=== PATIENT | male | born 1960 | race Caucasian/White ===

== ENCOUNTER 2023-03-19 03:13 | Emergency (ER) | payer OTHER, SELFPAY ==
[2023-03-19 03:14] VITALS: BP 146/92; PULSE 78; RESP 15; TEMP 36.7; O2SAT 97; BMI 38.4
--- NOTE | 2023-03-19 03:42 | EDS_ITS ---
HPI HPI - GI History of Present Illness Chief Complaint: Abd Pain Narrative Narrative: 63-year-old male presenting with left lower quadrant abdominal pain. He states he had this for about a month. He feels like it is sharp and it comes and goes. He states that sometimes is very severe. He states at times he is sweating. He does have history of kidney stones but states it does not feel similar. He has some constipation but denies diarrhea. No fevers or chills. No nausea or vomiting. He has had his gallbladder removed this is only abdominal surgery. Patient states he saw his PCP who felt he had diverticulitis and put him on prednisone. He has not had any improvement. [facility] Medical History (Updated 03/19/23 @ 05:[address] Carlo Brian DO) Kidney stones Sleep apnea Home Medications hydrocodone-acetaminophen 5-325mg 5mg-325mg 1 tab PO Q6H PRN pain 3 days #12 TABLETS 03/19/23 [Rx Last Taken Unknown] ondansetron 4 mg disintegrating tablet 4 mg PO Q8H PRN PRN Nausea #12 tabs 03/19/23 [Rx Last Taken Unknown] Allergy/AdvReac Type Severity Reaction Status Date / Time No Known Allergies Allergy Verified 03/19/23 03:22 Surgical History Hx of cholecystectomy Hx of tonsillectomy Social History Smoking Status: Never smoker ROS ROS ED Constitutional Constitutional ED: Denies chills, fever(s) or sweats Eyes Eyes: Denies blurry vision or change in vision ENT ENT ED: Denies ear pain or sore throat Cardiovascular Cardiovascular: Denies chest pain, palpitations or racing heartbeat Respiratory/Chest Respiratory/Chest: Denies cough, dyspnea or sputum Gastrointestinal Gastrointestinal: Reports abdominal pain and constipation; Denies diarrhea, nausea or vomiting Genitourinary Genitourinary ED: Denies dysuria, hematuria or urinary frequency Musculoskeletal Musculoskeletal: Denies arthralgias, myalgias or neck pain Integumentary Denies abscess, Abrasions or rash Neurologic Neurologic: Denies headache(s), paresthesias or weakness Psychiatric Psychiatric: Denies anxiety, depression, suicidal ideation or suicidal thoughts Endocrine Endocrinology: Denies polydipsia or polyuria EXAM Physical Exam Const Vital Signs: 03/19/23 03:14 Temperature 98.0 F Temperature Source Oral Pulse Rate 78 Respiratory Rate 15 Blood Pressure 146/92 H Blood Pressure Mean 110 Pulse Ox 97 Oxygen Delivery Method Room Air Positive well nourished General Appearance ED: NAD; Negative for pallor HEENT Reports moist mucous membranes normocephalic and atraumatic Eyes PERRL and EOMs intact bilaterally Resp normal respiratory effort Cardio regular rate and regular rhythm GI Palpation: tender LLQ Back/Spine General Back: CVA tenderness left Neuro CN's II-XII intact bilaterally, moves all extremities and no sensory deficits noted Sensorium / Orientation: alert Motor Exam: strength 5/5 throughout Psych mental status grossly normal and thought process normal Skin no wounds General Skin Exam: Negative for jaundice or pallor MDM MDM MDM Narrative Medical decision making narrative: 63-year-old male with left lower quadrant abdominal pain and some mild CVA tenderness on exam. Patient states been going on for about a month. He was diagnosed with diverticulitis and put on prednisone but this is not helping. Differential includes colitis, diverticulitis, UTI, pyelonephritis, kidney stone, ureteral stone, constipation, dehydration, electrolyte abnormalities. CBC was obtained to assess white blood cell count, hemoglobin, platelets. CMP to assess liver function, renal function, electrolytes. Urinalysis to assess for UTI or occult blood. Patient declines analgesia at this time. CBC showed no leukocytosis. Hemoglobin slightly concentrated. Platelets normal. Renal function electrolytes within normal limits. LFTs are normal exception of a bilirubin of 2.3. He has no right upper quadrant pain. Urinalysis positive for occult blood. Given this CT abdomen pelvis without contrast was obtained and shows an 8 mm ureteropelvic junction stone on the left. There is associated hydronephrosis and hydroureter. Patient given follow-up with Dr. Don, however I did discuss with him that if his pain is not under control I could attempt to transfer him to a facility that has urology on-call currently. He declines. He will be given [place] and Zofran for home. Return precautions discussed. Impression: 1. 8 mm UPJ stone 2. Hematuria 3. Hydronephrosis 4. Hydroureter Lab Data Attestation: I reviewed the patient's lab results. Labs: Laboratory Results - last 24 hr 03/19/23 03:50 WBC 10.1 RBC 5.63 Hgb 17.5 H Hct 51.5 MCV 91.5 MCH 31.1 MCHC 34.0 RDW Std Deviation 40.0 RDW Coeff of Tenzin 11.9 Plt Count 300 MPV 10.3 Immature Gran % (Auto) 0.600 Neut % (Auto) 70.3 H Lymph % (Auto) 23.1 Andrew % (Auto) 5.7 Eos % (Auto) 0.1 Baso % (Auto) 0.2 Absolute Neuts (auto) 7.1 Absolute Lymphs (auto) 2.34 Nucleated RBC % 0 Sodium 137 Potassium 3.8 Chloride 103 Carbon Dioxide 29.0 Anion Gap 5 BUN 14 Creatinine 1.23 Estim Creat Clear Calc 56.91 Est GFR (MDRD) Af Amer 77 Est GFR (MDRD) Non-Af 64 BUN/Creatinine Ratio 11.4 Glucose 120 H Calcium 9.0 Total Bilirubin 2.30 H AST 18 ALT 34 Alkaline Phosphatase 72 Total Protein 7.8 Albumin 4.3 Globulin 3.5 Albumin/Globulin Ratio 1.2 Urine Color Yellow Urine Clarity Clear Urine pH 6.0 Ur Specific [place] 1.015 Urine Protein 15 H Urine Glucose (UA) Normal Urine Ketones Negative Urine Occult Blood 250 H Urine Nitrite Negative Urine Bilirubin Negative Urine Urobilinogen Normal Ur Leukocyte Esterase 100 H Urine RBC 10-25 SEEN Urine WBC 0-5 SEEN Ur Squamous Epith Cells 0 SEEN Urine Bacteria 0 SEEN Urine Mucus 0 SEEN Radiography Diagnostic Testing: Clinical Impression(s) from Imaging Studies Abdomen/Pelvis CT 03/19/23 04:40 IMPRESSION: Mild-moderate left hydronephrosis due to an 8 mm stone which lies at the ureteropelvic junction. Electronically Signed: Yoav Perry MD at 5:33 EDT , Discharge Plan Triage Chief Complaint: Abd Pain ED Provider: Carlo Brian Dx/Rx/DC Orders Instructions: ED Kidney Stone w/ Colic Prescriptions: New hydrocodone-acetaminophen 5-325 mg tablet 1 tab PO Q6H PRN (Reason: pain) 3 Days Qty: 12 0RF ondansetron 4 mg tablet,disintegrating 4 mg PO Q8H PRN PRN (Reason: Nausea) Qty: 12 0RF Primary Care Provider: Minerva Metcalf NP Referrals: Broderick Don MD [Med Staff - Active Staff] - 3-5 Days Minerva Metcalf NP, [employer] [Primary Care Provider] - Disposition Disposition: Home, Self Care
[2023-03-19 03:57] LABS: Bacteria 0 SEEN /hpf (None Seen); Mucous, Urine 0 SEEN /hpf (<or=2+); Squamous Epithelial Cells - UA 0 SEEN /hpf (0-5)
[2023-03-19 03:58] LABS: Absolute Lymphocyte Count 2.34 X10^3/uL (0.83-4.51); Absolute Neutrophil Count 7.1 X10^3/uL (2.0-7.7); Basophil# 0.02 X10^3/uL; Basophil% 0.2 % (0-1); Eosinophil# 0.01 X10^3/uL; Eosinophils% 0.1 % (0-5); Hematocrit 51.5 % (40-54); Hemoglobin 17.5 g/dL (13.0-16.5); Lymphocyte # 2.34 X10^3/ul (0.83-4.51); Lymphocyte % 23.1 % (19-41); Mean Corpuscular Hgb 31.1 pg (27.0-32.0); Mean Corpuscular Volume 91.5 fL (80-94); Mean Platelet Vol. 10.3 fl (6.2-12.0); Monocyte# 0.58 X10^3/uL; Monocyte% 5.7 % (0-10); NRBC Flagged by Analyzer 0 % (0-5); Neutrophil % 70.3 % (47-70); Platelet Count 300 K/mm3 (150-450); RBC Distribution Width CV 11.9 % (11.6-14.6); Red Blood Count 5.63 M/mm3 (4.6-6.2); White Blood Count 10.1 K/mm3 (4.4-11.0)
[2023-03-19 04:02] LABS: Color, Urine Yellow (Yellow); Glucose, Dipstick Normal (Normal); Ketone-Dipstick Negative (Negative); Leukocyte Esterase-Dipstick 100 /ul (Negative); Nitrite-Dipstick Negative (Negative); Occult Blood-Urine 250 /ul (Negative); Protein-Dipstick 15 mg/dl (Negative); Specific Gravity, Urine 1.015 (1.002-1.030); Urine Bilirubin Dipstick Negative (Negative); Urine Clarity Clear (Clear); Urine Urobilinogen Normal (Normal)
[2023-03-19 04:14] LABS: ALB/GLOB Ratio 1.2 RATIO (0.9-2.4); AST(SGOT) 18 U/L (15-37); Alanine Aminotransfer ALT/SGPT 34 U/L (16-61); Albumin, Serum 4.3 g/dL (3.2-5.0); Alkaline Phosphatase 72 U/L (45-117); Anion Gap 5 (5-15); BUN 14 mg/dL (7-18); BUN/Creat Ratio 11.4 RATIO (10-20); Chloride 103 mmol/L (98-107); Creatinine, Serum 1.23 mg/dL (0.70-1.30); EST Glomerular Filtration Rate 64 mL/min (>60); Est Glom Filt Rate - Afr Amer 77 mL/min (>60); Estimated Creatinine Clearance 56.91 ml/min; Globulin 3.5 g/dL (2.2-4.2); Glucose 120 mg/dL (74-106); Potassium 3.8 mmol/L (3.5-5.1); Protein, Total 7.8 g/dL (6.4-8.2); Sodium Level 137 mmol/L (136-145)
[2023-03-19 04:33] LABS: Red Blood Cells-Urine 10-25 SEEN /hpf (0-5); White Blood Cells 0-5 SEEN /hpf (0-5)
--- NOTE | 2023-03-19 04:40 | CT_ITS ---
EXAM: CT ABDOMEN AND PELVIS WITHOUT INTRAVENOUS CONTRAST CLINICAL INDICATION: flank pain TECHNIQUE: Helically acquired images were obtained of the abdomen and pelvis without intravenous contrast. This CT exam was performed using one or more of the following dose reduction techniques: automated exposure control, adjustment of the mA and/or kV according to patient size, and/or use of iterative reconstruction technique. RADIATION DOSE: Total DLP: 1129.24 mGy-cm. COMPARISON: No relevant prior studies available. FINDINGS: LOWER THORAX: Minimal discoid atelectasis at the left lung base. No pleural effusion. No coronary artery calcification is visualized. No significant pericardial effusion. ABDOMEN: LIVER: Unremarkable. Homogeneous. GALLBLADDER AND BILE DUCTS: Cholecystectomy. No biliary ductal dilatation. PANCREAS: Unremarkable. No focal cystic mass. SPLEEN: Unremarkable. Normal size without focal cystic or solid mass. ADRENALS: Unremarkable. No nodules. KIDNEYS AND URETERS: Left kidney is mildly edematous with mild/moderate hydronephrosis due to a 8 x 4 x 7 mm lobulated calcification which lies ureteropelvic junction. An additional 8 x 4 x 4 mm ovoid stone lies within the lower lobe collecting system along with a few punctate stones in the lower pole collecting system. A punctate 1 mm nonobstructing stone is seen within the right renal lower pole collecting system. No right-sided hydronephrosis. Simple cyst of the upper pole of the right kidney, which requires no follow-up. STOMACH AND BOWEL: Unremarkable. No stomach or bowel distention. No focal inflammatory change. PELVIS: APPENDIX: Normal. No evidence of acute appendicitis. BLADDER: Partially distended urinary bladder is unremarkable. REPRODUCTIVE: Prostate gland measures 4.3 cm in transverse diameter. ABDOMEN and PELVIS: INTRAPERITONEAL SPACE: Unremarkable. No ascites or other fluid collection. No free air. BONES/JOINTS: Large osteophytes about the lower thoracic to upper lumbar disc spaces with smaller osteophytes in the lower lumbar region. Lumbar facet arthritis. Posterior osteophytes at the L1/2 level, mildly indenting the ventral aspect of the thecal sac. Bridging osteophytes about the anterior aspect of the SI joints, larger on the right. No acute osseous abnormality. No suspicious lytic or blastic abnormality. SOFT TISSUES: Small fat filled inguinal hernias are present. VASCULATURE: Unremarkable. Abdominal aorta is non-dilated. LYMPH NODES: Unremarkable. No enlarged lymph nodes. CT/Abdomen/Pelvis without Cont IMPRESSION: Mild-moderate left hydronephrosis due to an 8 mm stone which lies at the ureteropelvic junction. Electronically Signed: Yoav Perry MD at 5:33 EDT ,
[2023-03-19 06:09] VITALS: BP 138/79; PULSE 84; RESP 18; O2SAT 100
== END 2023-03-19 06:40 | disposition home or self-care (01) ==
PROVIDERS: Emergency Provider Student in an Organized Health Care Education/Training Program; PCP Nurse Practitioner Family; Visit Provider Student in an Organized Health Care Education/Training Program
DX: N13.2 Hydronephrosis with renal and ureteral calculous obstruction (principal)
CPT/HCPCS: 74176; 80053; 81001; 85025; 99283

== ENCOUNTER → 2023-03-22 | Outpatient (CLI) | payer OTHER, SELFPAY ==
--- NOTE | 2023-03-22 14:05 | RAD_ITS ---
STUDY: X-RAY - ABDOMEN/PELVIS REASON FOR EXAM: Male, 63 years old. Renal calculus. Follow-up. TECHNIQUE: Single AP view of the abdomen / pelvis on 3 images. COMPARISON: CT of the abdomen and pelvis dated March 19, 2023. FINDINGS: Normal visualized lung bases. Normal bowel gas pattern with no disproportionate dilatation and air seen to the rectosigmoid . The visualized liver, spleen and kidneys are grossly normal in size and morphology. 2 calcifications projected over the left renal shadow, one measuring 10 mm and the other 11 mm, both which were seen on the prior comparison CT dated March 19, 2023. Normal visualized osseous structures. RAD/Abdomen Single View IMPRESSION: Stable calcifications projected over the left kidney. No acute abdominal process. Electronically Signed: Alejandro Bateman MD at 10:11 EDT ,
== END | disposition home or self-care (01) ==
LOC: RAD 14:00
PROVIDERS: PCP Nurse Practitioner Family; Referring Provider Urology; Visit Provider Urology
DX: N20.2 Calculus of kidney with calculus of ureter (principal)
CPT/HCPCS: 74018

== ENCOUNTER → 2023-03-31 | Outpatient (CLI) | payer OTHER, SELFPAY ==
--- NOTE | 2023-03-31 13:59 | RAD_ITS ---
STUDY: X-RAY - ABDOMEN/PELVIS REASON FOR EXAM: Male, 63 years old. KIDNEY STONE TECHNIQUE: Single AP view of the abdomen / pelvis. COMPARISON: None. FINDINGS: Normal visualized lung bases. There is an unremarkable bowel gas pattern. There is no demonstrated free abdominal air. Status post right upper quadrant surgical clips with left-sided ureteral stent in place. There are 2 calcification projecting over the mid lower left kidney measuring 1.3 cm and 0.7 cm which could represent renal stones. Remainder of the visualized liver, spleen and kidneys are unremarkable in the visualized portion. Normal soft tissue structures. Normal visualized osseous structures. RAD/Abdomen Single View IMPRESSION: Left-sided calcifications projecting over the left kidney, likely stones. Left-sided ureteral stent as described. Nonspecific gas pattern. Electronically Signed: Esther King MD at 16:54 EDT ,
== END | disposition home or self-care (01) ==
LOC: RAD 13:51
PROVIDERS: PCP Nurse Practitioner Family; Referring Provider Urology; Visit Provider Urology
DX: N20.2 Calculus of kidney with calculus of ureter (principal)
CPT/HCPCS: 74018

== ENCOUNTER → 2024-10-01 | Outpatient (CLI) | payer OTHER, SELFPAY ==
--- NOTE | 2024-10-01 09:27 | RAD_ITS ---
PROCEDURE: CHEST PA AND LATERAL REASON FOR EXAM: Cough, Congestion TECHNIQUE: Frontal and lateral views of the chest. COMPARISON: None. FINDINGS: Exam limited by hypoinflation. Grossly unremarkable cardiomediastinal silhouette. Hypoinflation with vascular crowding. No convincing consolidation. Suspected calcified granuloma on the left. No effusion or visible pneumothorax. Multilevel spondylosis. Trace thoracic dextroscoliosis. Right upper quadrant surgical clips. RAD/Chest PA and Lateral IMPRESSION: 1. No visible acute cardiopulmonary findings. If unexplained symptoms persist, consider CT. 2. Additional description as above. Reading Location: [id number]
[2024-10-01 13:23] LABS: Absolute Lymphocyte Count 2.15 X10^3/uL (0.83-4.51); Absolute Neutrophil Count 2.6 X10^3/uL (2.0-7.7); Basophil# 0.03 X10^3/uL; Basophil% 0.5 % (0-1); Eosinophils% 3.4 % (0-5); Hematocrit 52.2 % (40-54); Hemoglobin 17.4 g/dL (13.0-16.5); Lymphocyte # 2.15 X10^3/ul (0.83-4.51); Lymphocyte % 36.4 % (19-41); Mean Corp Hgb Conc 33.3 g/dL (32-36); Mean Corpuscular Hgb 30.5 pg (27.0-32.0); Mean Corpuscular Volume 91.6 fL (80-94); Mean Platelet Vol. 10.5 fl (6.2-12.0); Monocyte# 0.93 X10^3/uL; Monocyte% 15.7 % (0-10); NRBC Flagged by Analyzer 0 % (0-5); Neutrophil # 2.57 X10^3/uL (2.7-7.7); Neutrophil % 43.5 % (47-70); Platelet Count 244 K/mm3 (150-450); RBC Distribution Width CV 11.9 % (11.6-14.6); RBC Distribution Width SD 40.1 fl (35.1-43.9); White Blood Count 5.9 K/mm3 (4.4-11.0)
[2024-10-01 13:37] LABS: Cholesterol 197 mg/dL (<=200); High Density Lipoprotein 37 mg/dL; Low Density Lipoprotein Calc. 134 mg/dL; Triglycerides 128 mg/dL; Very Low Density Lipoprotein 26 mg/dL (5-40); cholesterol:hdl ratio screen 5.28
[2024-10-01 15:56] LABS: ALB/GLOB Ratio 1.4 RATIO (0.9-2.4); AST(SGOT) 30 U/L (<=37); Alanine Aminotransfer ALT/SGPT 37 U/L (<=46); Albumin, Serum 4.3 g/dL (3.4-4.8); Alkaline Phosphatase 107 U/L (40-129); Anion Gap 11 (5-15); BUN 11 mg/dL (4-19); BUN/Creat Ratio 10.5 RATIO (10-20); Calcium 9.6 mg/dL (7.6-11.0); Carbon Dioxide 26.2 mmol/L (22.0-29.0); Chloride 100 mmol/L (96-108); Creatinine, Serum 1.05 mg/dL (0.70-1.20); EST Glomerular Filtration Rate 80 (>60); Glucose 166 mg/dL (70-99); Potassium 4.4 mmol/L (3.3-5.1); Protein, Total 7.3 g/dL (5.9-8.4); Sodium Level 137 mmol/L (133-145); Total Bilirubin 1.52 mg/dL (0.00-1.30)
[2024-10-01 16:03] LABS: Pro- Brain NATRIURETIC PEPTIDE < 36 pg/mL (<=900)
[2024-10-02 13:16] LABS: Hemoglobin A1c 7.5 % (<=5.6)
== END | disposition home or self-care (01) ==
PROVIDERS: PCP Nurse Practitioner Family; Referring Provider Internal Medicine; Visit Provider Internal Medicine
DX: I10 Essential (primary) hypertension (principal); R05.9 Cough, unspecified; R06.02 Shortness of breath; R73.9 Hyperglycemia, unspecified
CPT/HCPCS: 36415; 71046; 80053; 80061; 83036; 83880; 85025; 87631